=== PATIENT | female | born 1950 | race Hispanic/Latino ===

== ENCOUNTER 2018-01-14 09:53 | Emergency (ER) | payer MEDICAID ==
[2018-01-14 09:57] VITALS: BMI 25.6
[2018-01-14 10:10] VITALS: RESP 18; TEMP 97.8; O2SAT 95
--- NOTE | 2018-01-14 10:30 | ED PDOC ---
Arrival/HPI - General Chief Complaint: Dizziness/Lightheaded Time Seen by Provider: 01/14/18 10:04 Historian: Patient - History of Present Illness Narrative History of Present Illness (Text): 01/14/18 10:20 67 year old female, whose PMH includes diabetes, who presents to the emergency department complaining of feeling tired because she was walking too much. Patient reports she was walking and felt soreness in her hip because of walking too much. This made her unsteady and someone held her up from falling down. Patient is currently complaining of right sided hip pain that she felt while walking. She also states she did not eat anything today. Additionally, she reports having epistaxis last night from left nostril because of the heat. Patient denies fever, chest pain, shortness of breath, vomiting, abdominal pain , back pain, dizziness, headache, or other complaints. She specifically denies dizziness or lightheadedness when asked. She said they that EMS thought she was dizzy but she wasn't. Denies any alcohol or drug use. PMD: Dr. Art Dey Time/Duration: Prior to Arrival Symptom Onset: Sudden Symptom Course: Unchanged Activities at Onset: Light Context: Walking, Street Past Medical History - Provider Review Nursing Documentation Reviewed: Yes - Cardiac Hx Cardiac Disorders: No - Pulmonary Hx Respiratory Disorders: No - Neurological Hx Neurological Disorder: No - HEENT Hx HEENT Disorder: No - Renal Hx Renal Disorder: No - Endocrine/Metabolic Hx Endocrine Disorders: Yes Hx Diabetes Mellitus Type 2: Yes - Hematological/Oncological Hx Blood Disorders: No - Integumentary Hx Dermatological Disorder: No - Musculoskeletal/Rheumatological Hx Musculoskeletal Disorders: Yes Hx Fractures: Yes - Gastrointestinal Hx Gastrointestinal Disorders: No - Genitourinary/Gynecological Hx Genitourinary Disorders: No - Psychiatric Hx Psychophysiologic Disorder: Yes Hx Anxiety: Yes Hx Substance Use: No - Surgical History Hx Section: Yes Hx Orthopedic Surgery: Yes (L LEG) - Anesthesia Hx Anesthesia: Yes Family/Social History - Physician Review Nursing Documentation Reviewed: Yes Family/Social History: Unknown Family HX Smoking Status: Light Smoker < 10 Cigarettes Daily Hx Alcohol Use: No Hx Substance Use: No Allergies/Home Meds Allergies/Adverse Reactions: Allergies diphenhydramine [From Benadryl] Allergy (Verified 01/14/18 10:45) RASH egg Allergy (Verified 01/14/18 09:58) RASH Home Medications: Home Meds Medication Instructions Recorded Confirmed Aspirin [Adult Aspirin] 1 tab PO DAILY 01/14/18 01/14/18 Folic Acid [Folic Acid] 1 tab PO DAILY 01/14/18 01/14/18 Lactulose [Enulose] 30 ml PO TID 01/14/18 01/14/18 Loperamide [Imodium] 1 cap PO PRN 01/14/18 01/14/18 Multivitamin [Multivitamins] 1 tab PO DAILY 01/14/18 01/14/18 PARoxetine CR [Paxil CR] 1 tab PO DAILY 01/14/18 01/14/18 Pantoprazole [Protonix EC Tab] 1 tab PO DAILY 01/14/18 01/14/18 Propranolol [Inderal] 1 tab PO BID 01/14/18 01/14/18 Pyridoxine [Vitamin B6] 1 tab PO DAILY 01/14/18 01/14/18 Spironolactone [Aldactone] 1 tab PO DAILY 01/14/18 01/14/18 metFORMIN [glucOPHAGE] 1 tab PO BID 01/14/18 01/14/18 traZODone [Desyrel] 1 tab PO HS 01/14/18 01/14/18 Review of Systems - Review of Systems Constitutional: absent: Fevers ENT: Epistaxis (left nostril ) Respiratory: absent: SOB, Cough Cardiovascular: absent: Chest Pain, Syncope Gastrointestinal: absent: Abdominal Pain Genitourinary Female: absent: Dysuria Musculoskeletal: Other (left knee pain ) Neurological: absent: Headache Endocrine: absent: Diaphoresis Physical Exam Vital Signs Reviewed: Yes Vital Signs Temp Pulse Resp BP Pulse Ox 01/14/18 14:52 73 18 108/43 L 95 01/14/18 10:09 97.8 F 72 18 133/85 95 Temperature: Afebrile Blood Pressure: Normal Pulse: Regular Respiratory Rate: Normal Appearance: Positive for: Well-Appearing, Non-Toxic, Comfortable Pain Distress: None Mental Status: Positive for: Alert and Oriented X 3 Finger Stick Blood Glucose: 87 - Systems Exam Head: Present: Atraumatic, Normocephalic Pupils: Present: PERRL Extroacular Muscles: Present: EOMI Conjunctiva: Present: Normal Nose (External): Present: Atraumatic. No: Abrasion, Contusion, Laceration Nose (Internal): Present: Normal Inspection, No Active Bleeding, Moist Neck: Present: Normal Range of Motion. No: MIDLINE TENDERNESS Respiratory/Chest: Present: Clear to Auscultation, Good Air Exchange. No: Respiratory Distress, Accessory Muscle Use, Wheezes, Decreased Breath Sounds, Rales, Retracting, Rhonchi Cardiovascular: Present: Regular Rate and Rhythm, Normal S1, S2. No: Murmurs Abdomen: Present: Normal Bowel Sounds. No: Tenderness, Distention, Peritoneal Signs, Rebound, Guarding Back: Present: Normal Inspection. No: Midline Tenderness Upper Extremity: Present: Normal Inspection, Normal ROM, NORMAL PULSES Lower Extremity: Present: Normal Inspection, NORMAL PULSES, Normal ROM, Tenderness (left lateral knee tenderness; no hip tenderness or pain with movement), Neurovascularly Intact, Capillary Refill < 2 s. No: Edema, Cyanosis , Deformity Neurological: Present: GCS=15, CN II-XII Intact, Speech Normal, Normal Sensory Function Skin: Present: Warm, Dry, Normal Color. No: Rashes Psychiatric: Present: Alert, Oriented x 3, Normal Insight, Normal Concentration Medical Decision Making ED Course and Treatment: 01/14/18 Impression: 67 year old female with left lateral knee tenderness presenting to emergency department after an unsteady almost fall Differential Diagnosis included but are not limited to: Knee pain r/o fracture ; Electrolyte Imbalance vs Dehydration Plan: -- EKG -- Labs -- Urinalysis -- Reassess and disposition Progress Notes: EKG: Ordered, reviewed, and independently interpreted the EKG. Rate : 71 BPM Rhythm : NSR Interpretation : T-wave inversion V1, V2, V3, and V4 01/14/18 12:00 Left Knee x-ray: Creator : Claudio Mendez MD FINDINGS: BONES: Status post ORIF proximal tibia. No acute fracture. JOINTS: Normal. No osteoarthritis. JOINT EFFUSION: None. OTHER FINDINGS: None. IMPRESSION: No acute fracture. 01/14/18 17:34 Discussed case with patient's PMD Dr. Kahlil Dey. He states patient is a good historian. He faxed an EKG previous to compare to current EKG. Patient ate food well in the ED and was hydrated with IVF. She walked to the bathroom well with no ataxia or pain. Patient is safe for discharge with PMD f/u in 1-2days. She was advised to return to the ED if symptoms worsen or any other concern. - Lab Interpretations Lab Results: 01/14/18 10:45 01/14/18 12:00 Lab Results 01/14/18 15:15: POC Glucose (mg/dL) 120 H 01/14/18 12:00: Sodium 140, Potassium 4.0, Chloride 114 H, Carbon Dioxide 19 L, Anion Gap 12, BUN 12, Creatinine 0.5 L, Est GFR ( Amer) > 60, Est GFR ( Non-Af Amer) > 60, Random Glucose 93, Calcium 8.1 L, Magnesium 1.4 L, Lactate Dehydrogenase 800 H, Total Creatine Kinase 46, Troponin I < 0.01 01/14/18 10:45: Alcohol, Quantitative < 10 01/14/18 10:45: WBC 3.6 L, RBC 3.59, Hgb 11.4 L, Hct 33.7 L, MCV 93.9, MCH 31.8 , MCHC 33.8, RDW 15.7 H, Plt Count 73 L, Gran % 78.0 H, Lymph % (Auto) 12.3 L, Smyth % (Auto) 7.5 H, Eos % (Auto) 1.9, Baso % (Auto) 0.3, Gran # 2.80, Lymph # ( Auto) 0.4 L, Smyth # (Auto) 0.3, Eos # (Auto) 0.1, Baso # (Auto) 0.01 I have reviewed the lab results: Yes - RAD Interpretation Radiology Orders: 01/14/18 11:24 KNEE LEFT 2 VIEWS (AP & LAT) [RAD] Stat Heel Brusher: Radiologist - EKG Interpretation Interpreted by ED Physician: Yes Type: 12 lead EKG - Medication Orders Current Medication Orders: Discontinued Medications Sodium Chloride (Sodium Chloride 0.9%) 1,000 mls @ 999 mls/hr IV .Q1H1M STA Stop: 01/14/18 13:43 Last Admin: 01/14/18 13:25 Dose: 999 mls/hr eMAR Start Stop Document 01/14/18 13:25 GMD (Rec: 01/14/18 13:25 GMD [id number]) Intravenous Solution Start Date 01/14/18 Start Time 13:25 End Date 01/14/18 End time 14:26 Total Infusion Time 61 Magnesium Oxide (Mag-Ox) 400 mg PO STAT STA Stop: 01/14/18 12:44 Last Admin: 01/14/18 13:26 Dose: 400 mg - Scribe Statement The provider has reviewed the documentation as recorded by the Noemi Mora Provider Scribe Attestation: All medical record entries made by the Scribe were at my direction and personally dictated by me. I have reviewed the chart and agree that the record accurately reflects my personal performance of the history, physical exam, medical decision making, and the department course for this patient. I have also personally directed, reviewed, and agree with the discharge instructions and disposition. Disposition/Present on Arrival - Present on Arrival Any Indicators Present on Arrival: No History of DVT/PE: No History of Uncontrolled Diabetes: No Urinary Catheter: No History of Decub. Ulcer: No History Surgical Site Infection Following: None - Disposition Have Diagnosis and Disposition been Completed?: Yes Diagnosis: Weakness Disposition: HOME/ ROUTINE Disposition Time: 15:17 Patient Plan: Discharge Condition: IMPROVED Discharge Instructions (ExitCare): Weakness (ED) Additional Instructions: RAJWINDER LUNA, thank you for letting us take care of you today. Your provider was Bryan Levy DO and you were treated for WEAKNESS. The emergency medical care you received today was directed at your acute symptoms. If you were prescribed any medication, please fill it and take as directed. It may take several days for your symptoms to resolve. Return to the Emergency Department if your symptoms worsen, do not improve, or if you have any other problems. Please contact your doctor or call one of the physicians/clinics you have been referred to that are listed on the Patient Visit Information form that is included in your discharge packet. Bring any paperwork you were given at discharge with you along with any medications you are taking to your follow up visit. Our treatment cannot replace ongoing medical care by a primary care provider outside of the emergency department. Thank you for allowing the [facility] team to be part of your care today. If you had an X-Ray or CT scan: A Radiologist will review the ED reading if any change in treatment is needed we will contact you. If you had a blood, urine, or wound culture: It will take several days for the results, if any change in treatment is needed we will contact you. If you had an STI test: It will take 48 hours for the results. Please call after 1 week if you have not heard back. Referrals: Kahlil Dey MD [Primary Care Provider] - Follow up with primary Forms: [employer] ([place])
[2018-01-14 11:25] LABS: BASO # 0.01 K/mm3 (0.0-2.0); BASO % 0.3 % (0.0-3.0); EOS # 0.1 (0.0-0.7); EOS % 1.9 % (1.5-5.0); HEMOGLOBIN 11.4 g/dL (12.0-16.0); LYMPH # 0.4 (1.2-3.4); LYMPH % 12.3 % (22.0-35.0); MEAN CELL VOLUME 93.9 fl (80.0-105.0); MEAN CORPUSCULAR HEMOGLOBIN 31.8 pg (25.0-35.0); MEAN CORPUSCULAR HGB CONC 33.8 g/dl (31.0-37.0); MONO # 0.3 (0.1-0.6); MONO % 7.5 % (1.0-6.0); PLATELET COUNT 73 10^3/uL (120.0-450.0); RBC 3.59 10^6/uL (3.5-6.1); RED CELL DISTRIBUTION WIDTH 15.7 % (11.5-14.5); WHITE BLOOD COUNT 3.6 10^3/ul (4.5-11.0)
--- NOTE | 2018-01-14 11:58 | RAD ---
PROCEDURE: Left Knee Radiographs. HISTORY: Pain. COMPARISON: None. FINDINGS: BONES: Status post ORIF proximal tibia. No acute fracture. JOINTS: Normal. No osteoarthritis. JOINT EFFUSION: None. OTHER FINDINGS: None. IMPRESSION: No acute fracture.
[2018-01-14 12:28] LABS: BLOOD UREA NITROGEN 12 mg/dL (7-21); CALCIUM 8.1 mg/dL (8.4-10.5); GFR AFRICAN-AMERICAN > 60; GFR NON-AFRICAN AMERICAN > 60
[2018-01-14 12:39] LABS: TROPONIN I < 0.01 ng/mL
[2018-01-14] MEDS ORDERED: Magnesium Oxide 400 mg Tab UD PO STA (12:43)
[2018-01-14] MEDS ORDERED: Sodium Chloride 0.9% 1,000 ML IV STA (12:43)
[2018-01-14 14:53] VITALS: BP 108/43; PULSE 73
--- NOTE | 2018-01-15 09:02 | CARD ---
APPROVED REPORT EKG Measurement Heart [id number] <Conclusion> Normal sinus rhythm T wave abnormality, consider anterior ischemia
== END 2018-01-14 15:17 | disposition home or self-care (01) ==
LOC: ED 09:53
DX: R53.1 Weakness (principal); E11.9 Type 2 diabetes mellitus without complications; F17.210 Nicotine dependence, cigarettes, uncomplicated
CPT/HCPCS: 73560; 80048; 80320; 82550; 82948; 83615; 83735; 84484; 85025; 93005; 96360; 99283; J7030